=== PATIENT | male | born 1960 | race Caucasian/White ===

== ENCOUNTER 2017-11-14 08:48 | Day surgery (SDC) | payer BC ==
[~2017-11-14 08:48] MED LIST: Lactated Ringers 1,000 ML IV SCH
--- NOTE | 2017-11-14 10:59 | PCM.PREANE ---
Preanesthetic Assessment - Procedure Proposed Procedure: EGD - Anesthesia/Transfusion/Family Hx Anesthesia History: Prior Anesthesia Without Reaction Family History of Anesthesia Reaction: No Transfusion History: No Prior Transfusion(s) Intubation History: Unknown - Review of Systems General: Other (still with ulcer/reflex symptoms) Pulmonary: Other (chews tobacco) Cardiovascular: No Symptoms Gastrointestinal: Abdominal Pain (treated with antacids/H blockers), Other Neurological: Seizure (past after concussion - s/p bull riding) Other: Reports: Anxiety - Physical Assessment NPO Status Date: 11/13/17 NPO Status Time: 21:00 O2 Sat by Pulse Oximetry: 99 Respiratory Rate: 16 Vital Signs: Last Vital Signs Temp 97.9 F 11/14/17 09:00 Pulse 65 11/14/17 09:00 Resp 16 11/14/17 09:00 BP 150/79 H 11/14/17 09:00 Pulse Ox 99 11/14/17 09:00 Height: 5 ft 3 in Weight: 143 lb ASA Class: 2 Mental Status: Alert & Oriented x3 Airway Class: Mallampati = 1 Dentition: Reports: Normal Dentition Thyro-Mental Finger Breadths: 3 Mouth Opening Finger Breadths: 3 (narrow palate/mouth) ROM/Head Extension: Full Lungs: Clear to Auscultation, Normal Respiratory Effort Cardiovascular: Regular Rate, Regular Rhythm, No Murmurs - Allergies Allergies/Adverse Reactions: Allergies Allergy/AdvReac Type Severity Reaction Status Date / Time No Known Allergies Allergy Verified 11/11/17 12:26 - Blood Blood Available: No Product(s) Available: None - Anesthesia Plan Pre-Op Medication Ordered: None - Acknowledgements Anesthesia Type Planned: MAC Pt an Appropriate Candidate for the Planned Anesthesia: Yes Alternatives and Risks of Anesthesia Discussed w Pt/Guardian: Yes Pt/Guardian Understands and Agrees with Anesthesia Plan: Yes PreAnesthesia Questionnaire Gastrointestinal History: Reports: GERD, Other (See Below) Other Gastrointestinal History: hematemesis Musculoskeletal History: Reports: Arthritis, Fracture Other Musculoskeletal History: 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) Neurological History: Reports: Concussion, Seizure Other Neuro History: states has been over a year since his last seizure Psychiatric History: Reports: Anxiety - Past Surgical History Head Surgeries/Procedures: Reports: None GI Surgical History: Reports: Appendectomy, Colonoscopy Musculoskeletal Surgical History: Reports: Shoulder Surgery - SUBSTANCE USE Second Hand Smoke Exposure: No Days Per Week of Alcohol Use: 2 Number of Drinks Per Day: 0 Total Drinks Per Week: 0 Recreational Drug Use History: No - HOME MEDS Home Medications: Home Meds Zolpidem [Ambien] 10 mg PO BEDTIME PRN 01/27/14 [History] Pantoprazole Sodium 40 mg PO DAILY 11/11/17 [History] Pramipexole Di-HCl [Pramipexole Dihydrochloride] 0.25 mg PO BEDTIME 11/11/17 [ History] buPROPion HCl [Zyban] 150 mg PO BID 11/11/17 [History] rOPINIRole HCl [Requip] 1 mg PO BEDTIME 11/11/17 [History] - CURRENT (IN HOUSE) MEDS Current Meds: Current Medications Lactated Ringer's (Ringers, Lactated) 1,000 mls @ 125 mls/hr IV [facility]ED [facility] Last Admin: 11/14/17 09:30 Dose: 125 mls/hr
[2017-11-14] MEDS ORDERED: Propofol 200 MG/20 ML SDV ONE ×2 (11:11→11:20)
[2017-11-14] MEDS ORDERED: Ondansetron 4 MG Tab.DIS PO PRN (11:24)
--- NOTE | 2017-11-14 11:27 | PCM.OPNOTE ---
- General Post-Op/Procedure Note Date of Surgery/Procedure: 11/14/17 Operative Procedure(s): Esophagogastroduodenoscopy w/ biopsy Pre Op Diagnosis: Hematemesis Post-Op Diagnosis: Acute & chronic gastritis. Esophagitis. Hiatal hernia Anesthesia Technique: MAC (ASA II) Primary Surgeon: Mejia Faustin Garment Worker: Tyler Samaniego Condition: Good Free Text/Narrative:: Dictation [id number] CPT CODE [id number]
[2017-11-14] MEDS ORDERED: Lactated Ringers 1,000 ML IV SCH (11:30)
--- NOTE | 2017-11-14 12:01 | PCM.POSTAN ---
POST ANESTHESIA ASSESSMENT - MENTAL STATUS Mental Status: Alert, Oriented - RESPIRATORY Respiratory Status: Respiratory Rate WNL, Airway Patent, O2 Saturation Stable - CARDIOVASCULAR CV Status: Pulse Rate WNL, Blood Pressure Stable - GASTROINTESTINAL GI Status: No Symptoms - POST OP HYDRATION Hydration Status: Adequate & Stable
--- NOTE | 2017-11-14 12:01 | PCM48HPAN ---
Post Anesthesia Note - EVALUATION WITHIN 48HRS OF ANESTHETIC Vital Signs in Normal Range: Yes Patient Participated in Evaluation: Yes Respiratory Function Stable: Yes Airway Patent: Yes Cardiovascular Function Stable: Yes Hydration Status Stable: Yes Pain Control Satisfactory: Yes Nausea and Vomiting Control Satisfactory: Yes Mental Status Recovered: Yes Resp Rate: 7
[2017-11-14 14:05] VITALS: BP 123/68
--- NOTE | 2017-11-14 15:17 | OR ---
SURGEON: Mejia Faustin M.D. DATE OF PROCEDURE: 11/14/2017 OPERATION PERFORMED: Esophagogastroduodenoscopy with biopsy. PRINCIPAL STRATEGIST: Dr. Tyler Samaniego PGY-3. ANESTHESIA: MAC. ASA CLASSIFICATION: II. PREOPERATIVE DIAGNOSIS: Hematemesis. POSTOPERATIVE DIAGNOSES: 1. Gastritis. 2. Esophagitis. 3. Small hiatal hernia. DESCRIPTION OF PROCEDURE: The patient was taken to the endoscopy room and positioned on the endoscopy table in the supine position. Time-out was called for appropriate identification of the patient and procedure. Monitored anesthesia care was provided. The bite block was placed between the patient's teeth. The gastroscope was inserted through the bite block into the oropharynx and advanced without difficulty through the esophagus and stomach into the duodenum, where examination was carried out in a retrograde fashion. The duodenum shows no acute inflammatory changes or ulcerations. The stomach does show moderate acute and chronic gastritis. No ulcerations were noted. Antral biopsies were obtained to look for the evidence of Helicobacter pylori. The gastroscope was then retroflexed to visualize the proximal stomach. The patient does have a hiatal hernia that can be seen both from above and below. No proximal gastric lesions were identified and certainly no neoplastic process was noted. The gastroscope was then straightened and slowly withdrawn aspirating the stomach as the scope was withdrawn. The GE junction is well defined, despite this hiatal hernia. The esophagus demonstrated good contractility. No mid or proximal esophageal lesions were identified. The vocal cords were briefly visualized as the scope was withdrawn and noted to move symmetrically. No vocal cord lesions were identified. The gastroscope was then removed with the patient having tolerated the procedure well. He was then taken to recovery room in stable condition. MILLIE / KATI /[id number]
== END 2017-11-14 12:00 | disposition home or self-care (01) ==
LOC: MW.SDS 08:48
PROVIDERS: ATTEND Surgery
DX: K29.50 Unspecified chronic gastritis without bleeding (principal); K21.0 Gastro-esophageal reflux disease with esophagitis; K44.9 Diaphragmatic hernia without obstruction or gangrene; F17.290 Nicotine dependence, other tobacco product, uncomplicated; F41.9 Anxiety disorder, unspecified; M19.90 Unspecified osteoarthritis, unspecified site; Z79.899 Other long term (current) drug therapy
CPT/HCPCS: 43239; 88305; 88312; J7120; J2704